=== PATIENT | male | born 1985 | race African-American/Black ===

== ENCOUNTER → 2016-11-05 | Outpatient (CLI) | payer BC ==
--- NOTE | ~2016-11-05 | CR181 ---
[facility] A Service of [facility] RADIOLOGY TEXT RESULTS PATIENT: DARA MCELROY LOCATION: [facility] : [birth year] UNIT #: [id number] AGE: [address]: Maritza Shields MD SEX: M ORDER DR: [id number] [place] [id number] MR#: [id number] Acc #: [id number] NAME: DARA MCELROY : 1985 SEX: M STUDY DATE/TIME: 11/05/2016 10:38 UNIT: [facility] ROOM: STUDY DESCRIPTION: CR Lumbar Spine 2 or 3 Views Attending Physician: Maritza Shields M.D. Referring Physician: Maritza Shields M.D. Ordering Physician: Maritza Shields M.D. Primary Care Physician: Maritza Shields M.D. MEDICAL IMAGING REPORT This report is preliminary unless electronic signature is present. EXAM Lumbar spine 3 views, 11/05/2016 HISTORY Low back pain for 2 years with bilateral lower extremity numbness and tingling. No known injury. FINDINGS AP and lateral projections of the lumbar segment show good mineralization of both anterior and posterior elements. They are all anatomically normal without indication of fracture, dislocation, or malignant change of a sclerotic or lytic type. There is no congenital defect noted. The sacroiliac joints are normal. IMPRESSION Normal lumbar spine. Dictated by... Saroj Chang M.D. THIS IS AN ELECTRONICALLY VERIFIED REPORT Saroj Chang M.D. at 11/06/2016 8:08 AM SURYA/jordi TD: 11/05/2016 15:47 JOB #: [id number] MEDICAL IMAGING REPORT Page 1 of 1
== END | disposition home or self-care (01) ==
LOC: SRAD 10:31
DX: M51.36 Other intervertebral disc degeneration, lumbar region (principal)
CPT/HCPCS: 72100